=== PATIENT | female | born 1990 | race Caucasian/White ===

== ENCOUNTER 2022-04-29 07:41 | Emergency (ER) | payer BC, OTHER ==
[2022-04-29 08:50] LABS: HEMOGLOBIN 14.3 gm/dl (12.3-15.3); RED BLOOD COUNT 4.61 M/UL (4.00-5.10); WHITE BLOOD COUNT 9.4 K/UL (4.5-11.0)
[2022-04-29 09:35] LABS: BUN/CREATININE RATIO 14 (0-10)
[2022-04-29] MEDS ORDERED: TORADOL 10 MG T10 MG PO (14:00)
[2022-04-29] MEDS ORDERED: ZOFRAN 4 MG TAB4 MG PO (14:00)
[2022-04-29] MEDS ORDERED: FLOMAX 0.4 MG0.4 MG PO (14:00)
== END 2022-04-29 14:28 | disposition home or self-care (01) ==
LOC: ER1 07:41
PROVIDERS: Physician Assistant
DX: N13.2 Hydronephrosis with renal and ureteral calculous obstruction (principal); Z87.442 Personal history of urinary calculi
CPT/HCPCS: 80053; 81001; 84703; 85025; 96374; 96375; 99284; J1885; J2405